=== PATIENT | female | born 1970 | race Caucasian/White ===

== ENCOUNTER 2019-06-15 07:24 | Emergency (ER) | payer MEDICAID ==
[~2019-06-15] VITALS: Ht 144.8 cm; Wt 65.0 kg
[2019-06-15] MEDS ORDERED: ACETAMINOPHEN 325MG TABLET PO ONE (08:45)
[2019-06-15 09:14] LABS: CLARITY URINE CLEAR (CLEAR); COLOR URINE YELLOW (YELLOW); KETONES URINE NEGATIVE (NEGATIVE); LEUKOCYTE ESTERASE URINE 1+ (NEGATIVE); NITRITE URINE NEGATIVE (NEGATIVE); OCCULT BLOOD URINE NEGATIVE (NEGATIVE); PROTEIN URINE NEGATIVE (NEGATIVE); SPECIFIC GRAVITY URINE 1.006 (1.005-1.030); UROBILINOGEN URINE 0.2 E.U./dL (0.2-1.0)
[2019-06-15 09:43] VITALS: BP 105/63
== END 2019-06-15 09:43 | disposition home or self-care (01) ==
LOC: ER 07:24
DX: N39.0 Urinary tract infection, site not specified (principal); E11.9 Type 2 diabetes mellitus without complications; Z87.19 Personal history of other diseases of the digestive system
CPT/HCPCS: 81003; 82962; 87077; 87186; 99283

== ENCOUNTER 2020-08-20 13:45 | Emergency (ER) | payer MEDICAID ==
[~2020-08-20] VITALS: Ht 144.8 cm; Wt 63.0 kg
[2020-08-20] MEDS ORDERED: KETOROLAC 60MG/2ML VIAL IM ONE (14:30)
[2020-08-20 15:20] VITALS: BP 108/61
== END 2020-08-20 15:51 | disposition home or self-care (01) ==
LOC: ER 14:02
DX: M54.2 Cervicalgia (principal); M54.6 Pain in thoracic spine; M54.5 Low back pain; E11.9 Type 2 diabetes mellitus without complications; V49.49XA Driver injured in collision with other motor vehicles in traffic accident, initial encounter; Y93.89 Activity, other specified; Y92.89 Other specified places as the place of occurrence of the external cause; Y99.8 Other external cause status; E78.00 Pure hypercholesterolemia, unspecified; Z90.49 Acquired absence of other specified parts of digestive tract
CPT/HCPCS: 72070; 72100; 81025; 96372; 99284; J1885